=== PATIENT | female | born 1985 | race Asian ===

== ENCOUNTER 2018-06-22 17:36 | Emergency (ER) | payer BC ==
--- NOTE | 2018-06-22 17:49 | ED Physician Documentation ---
PD HPI SKIN - Stated complaint Stated Complaint: LOWER L LEG PX - Chief complaint Chief Complaint: Ext Problem - History obtained from History obtained from: Patient - History of Present Illness Timing - onset: Yesterday Timing - duration: Days (1-2) Timing - details: Abrupt onset (she had had soft spot on lower leg that had Dx of varicosity in the past. This got abruptly larger and hard/tender through the day yesterday and today.) Location: LLE (medial upper calf.) Quality / character: Painful, Swelling, Other (no noted injury to the area). No : Discolored, Draining Associated symptoms: No: Fever, Myalgias Similar symptoms before: Has not had sx before Recently seen: Not recently seen Review of Systems Constitutional: denies: Fever, Chills GI: denies: Nausea, Vomiting Neurologic: denies: Focal weakness, Numbness PD PAST MEDICAL HISTORY - Past Medical History Cardiovascular: None Respiratory: None Neuro: None Endocrine/Autoimmune: None - Present Medications Home Medications: Ambulatory Orders Medication Instructions Recorded Confirmed No Known Home Medications [No 06/22/18 06/22/18 Known Home Medications] - Allergies Allergies/Adverse Reactions: Allergies Allergy/AdvReac Type Severity Reaction Status Date / Time No Known Drug Allergies Allergy Verified 06/22/18 17:42 PD ED PE NORMAL - Vitals Vital signs reviewed: Yes - General General: Alert and oriented X 3, No acute distress, Well developed/nourished - Derm Derm: Normal color, Warm and dry - Extremities Extremities: Other (left anteromedial lower leg with focal area or raised firm area that is fluctuant, with some warmth but no redness. No skin sores noted. ) - Neuro Neuro: Alert and oriented X 3, No motor deficit, No sensory deficit, Normal speech Results - Vitals Vitals: Oxygen O2 Source Room air Procedures - Abscess I&D (location) left leg Preparation: Confirmed with ultrasound, Lidocaine 1%, With epi, Other ( consideration for abscess/ infected skin cyst and so talked with patient and decided for I&D. This found no pus, but clotted blood expressed out c/w hematoma. No fresh blood gotten after evacuation of the hematoma.) Incision: Incised with scalpel. No: Purulent drainage (clotted blood c/w hematoma) PD MEDICAL DECISION MAKING - Sepsis Event Vital Signs: Oxygen O2 Source Room air Departure - Departure Disposition: Home, Self Care Clinical Impression: Hematoma of left lower extremity Qualifiers: Encounter type: initial encounter Qualified Code(s): S80.12XA - Contusion of left lower leg, initial encounter Condition: Stable Record reviewed to determine appropriate education?: Yes Instructions: ED Hematoma Comments: This should improve with the hematoma blood drained out. Keep the wrap on the area to reduce further bleeding in the site. Tylenol or ibuprofen if needed for pains. Recheck if any signs of infection develop but it did not have any appearance of infection at this time.The wound will heal up without needing closing and it is better to allow it to stay open and draining at this point. Discharge Date/Time: 06/22/18 19:13
[2018-06-22] MEDS ORDERED: LIDOCAINE MPF 2%-EPI 1:200000 20 ML VIAL SUBQ ONE (18:02)
[2018-06-22 19:13] VITALS: BP 177/66
== END 2018-06-22 19:13 | disposition home or self-care (01) ==
LOC: ED 17:36
DX: S80.12XA Contusion of left lower leg, initial encounter (principal)
CPT/HCPCS: 10140; 99282; 99283